=== PATIENT | male | born 2000 | race African-American/Black ===

== ENCOUNTER 2021-11-25 23:54 | Inpatient (IN) | payer SELFPAY ==
[2021-11-26 00:46] LABS: Bacteria/HPF None Seen HPF (None Seen); Bilirubin Negative (Negative); Blood, Urine Trace (Negative); Clarity Clear (Clear); Glucose, Urine (Dipstick) Greater than 1000 mg/dL (Negative); Ketone, Urine Greater than 150 mg/dL (Negative); Leukocyte Negative Leu/uL (Negative); Nitrite Negative (Negative); Protein, Urine (Dipstick) 30 mg/dL (Neg-Trace); Specific Gravity, Urine 1.042 (1.002-1.036); Urobilinogen Normal mg/dL (Less than 2); pH, Urine 5.5 (5.0-9.0)
[2021-11-26 00:49] LABS: Analyzer IN Cardio ER; Base Excess -12.3 mEq/L (-2.0 to +3.0); Calcium, Ionized (venous) 1.06 mmol/L (1.16-1.32); Chloride (VBG) 101 mmol/L (98-106); Potassium (VBG) 5.55 mmol/L (3.70-5.30); Sodium 131.6 mmol/L (133-146); pH (venous) 7.36 (7.32-7.43)
[2021-11-26 01:01] LABS: #Basophils 0.1 thou/uL (0.0-0.2); #Eosinphils 0.1 thou/uL (0.0-0.7); #Lymphocytes 3.8 thou/uL (1.20-3.40); #Neutrophils 7.3 thou/uL (1.40-6.50); %Eosinophils 0.7 % (0.0-10.0); %Lymphocytes 31.2 % (21.0-51.0); %Neutrophils 59.1 % (42.0-75.0); Hemoglobin 15.8 g/dL (14.0-18.0); Mean Corpuscular HGB CONC 32.4 g/dL (32.0-36.0); Mean Corpuscular Hemoglobin 27.7 pg (27.0-31.0); Mean Corpuscular Volume 85.6 fL (78.0-98.0); Mean Platelet Volume 8.9 fL (7.4-10.4); Platelet Count 343 thou/uL (130-400); RBC Distribution Width 13.3 % (11.5-14.5); Red Blood Cell (RBC) Count 5.71 mill/uL (4.70-6.10); White Blood Cell (WBC) Count 12.3 thou/uL (4.8-10.8)
[2021-11-26 01:44] LABS: Albumin 4.8 g/dL (3.5-5.0)
[2021-11-26 01:46] LABS: Calcium 9.5 mg/dL (7.8-10.44); Chloride 101 mmol/L (98-107); Potassium 4.4 mmol/L (3.5-5.1); Sodium 130 mmol/L (136-145)
[2021-11-26 01:47] LABS: Globulin 4.5 g/dL (2.4-3.5); Glucose 413 mg/dL (70-105); Protein, Total 9.3 g/dL (6.0-8.3)
[2021-11-26 01:49] LABS: Bilirubin, Total 0.6 mg/dL (0.2-1.2)
[2021-11-26 01:50] LABS: Alkaline Phosphatase 110 U/L (40-110); Calc. Creatinine Clearance 0 mL/min (70-130); Estimated GFR 70
[2021-11-26 01:51] LABS: BUN (Urea Nitrogen) 9 mg/dL (8.9-20.6)
[2021-11-26 01:52] LABS: AST (SGOT) 38 U/L (5-34)
[2021-11-26 01:53] LABS: ALT (SGPT) 60 U/L (8-55); Carbon Dioxide 8 mmol/L (22-29)
[2021-11-26] MEDS ORDERED: INSULIN REGULAR IN 0.9 % NACL 100 UNIT/100 ML BAG ONE (02:03)
[2021-11-26] MEDS ORDERED: NS 0.9% w/ 20 MEQ KCL 1,000 ML ONE (02:07)
[2021-11-26] MEDS ORDERED: Ondansetron PF 4 MG/2 ML Vial IVP PRN (02:13)
[2021-11-26] MEDS ORDERED: NS 0.9% w/ 20 MEQ KCL 1,000 ML IV PRN ×2 (02:13→22:29)
[2021-11-26] MEDS ORDERED: Senokot S 8.6-50 MG TAB PO PRN (02:13)
[2021-11-26] MEDS ORDERED: Electrolyte Replacement Protocol 1 EACH IVPB ONE (02:13)
[2021-11-26] MEDS ORDERED: Calcium Carbonate 500 MG ChewTAB PO PRN (02:13)
[2021-11-26] MEDS ORDERED: D5 1/2 NS w/20 mEq KCL 1,000 ML IV PRN ×2 (02:13→22:29)
[2021-11-26] MEDS ORDERED: Acetaminophen 325 MG TAB PO PRN (02:13)
[2021-11-26] MEDS ORDERED: Sodium Chloride 0.9% 1,000 ML IV PRN ×5 (02:13→22:29)
[2021-11-26] MEDS ORDERED: Dextrose 5 %-0.45 % NaCl 1,000 ML IV PRN ×2 (02:13→22:29)
[2021-11-26 02:22] LABS: Actual Bicarbonate (HCO3v) 10 mEq/L (22-28)
[2021-11-26] MEDS ORDERED: Electrolyte Replacement Protocol 1 EACH IVPB PRN ×2 (02:26→22:29)
[2021-11-26 02:28] LABS: Anion Gap 25 mmol/L (10-20)
[2021-11-26] MEDS ORDERED: HUMULIN R 100 UNITS in Sodium Chloride 0.9% 100 ML IVPB SCH ×2 (03:00→22:30)
[2021-11-26 03:26] LABS: #Basophils 0.1 thou/uL (0.0-0.2); #Eosinphils 0.1 thou/uL (0.0-0.7); #Lymphocytes 3.8 thou/uL (1.20-3.40); #Monocytes 0.9 thou/uL (0.11-0.59); #Neutrophils 7.4 thou/uL (1.40-6.50); %Basophils 0.7 % (0.0-1.0); %Eosinophils 0.6 % (0.0-10.0); %Lymphocytes 31.2 % (21.0-51.0); %Monocytes 7.4 % (0.0-10.0); %Neutrophils 60.1 % (42.0-75.0); Hemoglobin 15.2 g/dL (14.0-18.0); Mean Corpuscular HGB CONC 33.1 g/dL (32.0-36.0); Mean Corpuscular Hemoglobin 28.6 pg (27.0-31.0); Mean Corpuscular Volume 86.4 fL (78.0-98.0); Platelet Count 316 thou/uL (130-400); RBC Distribution Width 13.1 % (11.5-14.5); White Blood Cell (WBC) Count 12.3 thou/uL (4.8-10.8)
[2021-11-26 03:33] LABS: Hemoglobin A1c Greater than 14.0 % (4.0-6.0)
[2021-11-26 03:59] VITALS: BMI 44.9
[2021-11-26 04:24] LABS: ALT (SGPT) 55 U/L (8-55); AST (SGOT) 31 U/L (5-34); Albumin 4.5 g/dL (3.5-5.0); Alkaline Phosphatase 102 U/L (40-110); Anion Gap 24 mmol/L (10-20); BUN (Urea Nitrogen) 8 mg/dL (8.9-20.6); Bilirubin, Total 0.6 mg/dL (0.2-1.2); Calc. Creatinine Clearance 211 mL/min (70-130); Calcium 8.9 mg/dL (7.8-10.44); Chloride 104 mmol/L (98-107); Cholesterol 162 mg/dl (< 200 Desired); Estimated GFR 80; Globulin 3.9 g/dL (2.4-3.5); Glucose 348 mg/dL (70-105); HDL Cholesterol 27 mg/dL (>60 Neg Risk); Magnesium 1.8 mg/dL (1.6-2.6); Phosphorus 2.2 mg/dL (2.3-4.7); Potassium 4.5 mmol/L (3.5-5.1); Protein, Total 8.4 g/dL (6.0-8.3); Sodium 132 mmol/L (136-145); Triglycerides 595 mg/dL (Less than 150)
[2021-11-26 04:36] LABS: Carbon Dioxide 9 mmol/L (22-29)
[2021-11-26] MEDS: NS 0.9% w/ 20 MEQ KCL 1,000 ML IV PRN ×2 (05:21→07:53)
[2021-11-26 06:47] LABS: SARS-CoV-2 NAA Rapid Test DETECTED (NotDetected)
[2021-11-26] MEDS ORDERED: Magnesium 2 GM/50 ML(in water) 2 GM in Premix Bag 1 BAG IVPB SCH (08:00)
[2021-11-26] MEDS ORDERED: Enoxaparin Sodium 40 MG/0.4 ML SYRINGE SC SCH (09:00)
[2021-11-26] MEDS ORDERED: FLU VACC QS2022-23(6MOS UP)/PF 60 MCG/0.5 ML SYRINGE IM ONE (09:00)
[2021-11-26 10:50] LABS: Anion Gap 19 mmol/L (10-20); BUN (Urea Nitrogen) 5 mg/dL (8.9-20.6); Calc. Creatinine Clearance 275 mL/min (70-130); Calcium 8.5 mg/dL (7.8-10.44); Carbon Dioxide 10 mmol/L (22-29); Chloride 111 mmol/L (98-107); Estimated GFR 109; Glucose 229 mg/dL (70-105); Potassium 4.7 mmol/L (3.5-5.1); Sodium 135 mmol/L (136-145)
[2021-11-26] MEDS ORDERED: Dextrose 50% Abboject 50 ML SYRINGE SLOW IVP PRN (10:56)
[2021-11-26] MEDS ORDERED: Dextrose 5% in Water 1,000 ML IV PRN (10:56)
[2021-11-26] MEDS ORDERED: Insulin Glargine 30 UNITS/0.3 ML VIAL SC SCH (11:00)
[2021-11-26] MEDS: HumaLOG 300 UNITS/3 ML VIAL SC SCH ×2 (11:58→17:09)
[2021-11-26 14:16] LABS: Chlam.trachomatis by PCR,Urine Not Detected (NotDetected)
[2021-11-26] MEDS ORDERED: Amlodipine 10 MG TAB PO SCH (16:00)
[2021-11-26] MEDS: HumaLOG 300 UNITS/3 ML VIAL SC PRN ×2 (17:10→21:10)
[2021-11-26] MEDS: Labetalol HCl 100 MG/20 ML VIAL SLOW IVP PRN (21:02)
[2021-11-26] MEDS: Enoxaparin Sodium 40 MG/0.4 ML SYRINGE SC SCH ×2 (21:10→21:28)
[2021-11-26 21:50] LABS: Anion Gap 18 mmol/L (10-20); BUN (Urea Nitrogen) 5 mg/dL (8.9-20.6); Calc. Creatinine Clearance 225 mL/min (70-130); Calcium 8.8 mg/dL (7.8-10.44); Carbon Dioxide 11 mmol/L (22-29); Chloride 107 mmol/L (98-107); Estimated GFR 86; Glucose 268 mg/dL (70-105); Sodium 132 mmol/L (136-145)
[2021-11-27 02:52] LABS: Anion Gap 18 mmol/L (10-20); BUN (Urea Nitrogen) 5 mg/dL (8.9-20.6); Calc. Creatinine Clearance 227 mL/min (70-130); Calcium 9.1 mg/dL (7.8-10.44); Carbon Dioxide 11 mmol/L (22-29); Chloride 107 mmol/L (98-107); Estimated GFR 87; Glucose 244 mg/dL (70-105); Potassium 4.3 mmol/L (3.5-5.1); Sodium 132 mmol/L (136-145)
[2021-11-27] MEDS: Labetalol HCl 100 MG/20 ML VIAL SLOW IVP PRN ×2 (05:02→08:46)
[2021-11-27] MEDS: HumaLOG 300 UNITS/3 ML VIAL SC PRN ×4 (05:03→19:59)
[2021-11-27] MEDS: Enoxaparin Sodium 40 MG/0.4 ML SYRINGE SC SCH ×2 (08:14→20:03)
[2021-11-27] MEDS: Insulin Glargine 30 UNITS/0.3 ML VIAL SC SCH (08:14)
[2021-11-27] MEDS: HumaLOG 300 UNITS/3 ML VIAL SC SCH ×3 (08:17→17:19)
[2021-11-27 10:38] LABS: Anion Gap 19 mmol/L (10-20); BUN (Urea Nitrogen) 6 mg/dL (8.9-20.6); Calc. Creatinine Clearance 233 mL/min (70-130); Calcium 9.1 mg/dL (7.8-10.44); Carbon Dioxide 11 mmol/L (22-29); Chloride 106 mmol/L (98-107); Estimated GFR 89; Glucose 267 mg/dL (70-105); Magnesium 1.6 mg/dL (1.6-2.6); Sodium 132 mmol/L (136-145)
[2021-11-27] MEDS ORDERED: Amlodipine 10 MG TAB PO SCH (12:00)
[2021-11-27] MEDS: Sodium Chloride 0.9% 1,000 ML IV SCH ×2 (12:07→17:20)
[2021-11-27] MEDS ORDERED: Magnesium 2 GM/50 ML(in water) 2 GM in Premix Bag 1 BAG IVPB SCH (14:30)
[2021-11-28] MEDS: Sodium Chloride 0.9% 1,000 ML IV SCH ×4 (03:09→20:51)
[2021-11-28] MEDS: HumaLOG 300 UNITS/3 ML VIAL SC PRN ×3 (05:59→16:58)
[2021-11-28] MEDS: Amlodipine 10 MG TAB PO SCH (08:59)
[2021-11-28] MEDS: Insulin Glargine 30 UNITS/0.3 ML VIAL SC SCH (09:00)
[2021-11-28] MEDS: HumaLOG 300 UNITS/3 ML VIAL SC SCH ×3 (09:01→16:58)
[2021-11-28] MEDS: Enoxaparin Sodium 40 MG/0.4 ML SYRINGE SC SCH ×2 (09:02→20:51)
[2021-11-28 09:05] LABS: Anion Gap 17 mmol/L (10-20); BUN (Urea Nitrogen) 6 mg/dL (8.9-20.6); Calc. Creatinine Clearance 261 mL/min (70-130); Calcium 8.6 mg/dL (7.8-10.44); Carbon Dioxide 13 mmol/L (22-29); Chloride 110 mmol/L (98-107); Estimated GFR 103; Glucose 207 mg/dL (70-105); Magnesium 1.6 mg/dL (1.6-2.6); Potassium 3.7 mmol/L (3.5-5.1); Sodium 136 mmol/L (136-145)
[2021-11-28] MEDS ORDERED: Magnesium 2 GM/50 ML(in water) 2 GM in Premix Bag 1 BAG IVPB SCH (14:00)
[2021-11-29] MEDS: Sodium Chloride 0.9% 1,000 ML IV SCH ×2 (06:11→10:19)
[2021-11-29] MEDS: Amlodipine 10 MG TAB PO SCH (08:22)
[2021-11-29] MEDS: HumaLOG 300 UNITS/3 ML VIAL SC SCH ×2 (08:22→11:46)
[2021-11-29] MEDS: Insulin Glargine 30 UNITS/0.3 ML VIAL SC SCH (08:22)
[2021-11-29] MEDS: Enoxaparin Sodium 40 MG/0.4 ML SYRINGE SC SCH (08:23)
[2021-11-29 09:31] LABS: Anion Gap 18 mmol/L (10-20); BUN (Urea Nitrogen) 4 mg/dL (8.9-20.6); Calc. Creatinine Clearance 265 mL/min (70-130); Calcium 8.8 mg/dL (7.8-10.44); Carbon Dioxide 13 mmol/L (22-29); Chloride 110 mmol/L (98-107); Estimated GFR 105; Glucose 201 mg/dL (70-105); Magnesium 1.6 mg/dL (1.6-2.6); Potassium 3.8 mmol/L (3.5-5.1); Sodium 137 mmol/L (136-145)
[2021-11-29] MEDS ORDERED: Magnesium 2 GM/50 ML(in water) 2 GM in Premix Bag 1 BAG IVPB SCH (11:00)
[2021-11-29] MEDS: HumaLOG 300 UNITS/3 ML VIAL SC PRN (11:46)
[2021-11-29 11:49] VITALS: BP 148/95; TEMP 98.3
== END 2021-11-29 13:15 | disposition home or self-care (01) | DRG 637 ==
LOC: ERS 23:54 → CCU 11-26 02:19 → T4-A 11-26 14:52
PROVIDERS: ADMIT Internal Medicine; ATTEND Internal Medicine
DX: E10.10 Type 1 diabetes mellitus with ketoacidosis without coma (principal); U07.1 COVID-19; E87.1 Hypo-osmolality and hyponatremia; N17.9 Acute kidney failure, unspecified; Z68.41 Body mass index [BMI] 40.0-44.9, adult; E66.9 Obesity, unspecified; I10 Essential (primary) hypertension; F17.210 Nicotine dependence, cigarettes, uncomplicated; J45.909 Unspecified asthma, uncomplicated
CPT/HCPCS: 36415; 36416; 80048; 80053; 80061; 81003; 81015; 82010; 82805; 83036; 83735; 84100; 85025; 87491; 87591; 93005; 96374; J1650; J1815; J3475; J3480; J7042; J7050; U0002